=== PATIENT | male | born 1960 | race African-American/Black ===

== ENCOUNTER 2017-03-10 12:47 | Emergency (ER) | payer BC ==
[~2017-03-10] VITALS: Ht 182.9 cm; Wt 93.0 kg
[2017-03-10 12:55] VITALS: BP 126/73
[2017-03-10] MEDS ORDERED: IV NORMAL SALINE 1000ML BAG 1,000 ML IV ONE (13:15)
[2017-03-10] MEDS ORDERED: NAPROXEN 500 MG TABLET PO STA (13:17)
[2017-03-10] MEDS ORDERED: HYDROcodone/APAP 5/325MG 1 TAB TABLET PO ONE (13:30)
[2017-03-10] MEDS ORDERED: CYCLOBENZAPRINE 10 MG TABLET. PO ONE (13:30)
[2017-03-10] MEDS ORDERED: CYCL10TA2 PO (13:34)
[2017-03-10] MEDS ORDERED: NAPR500T8 PO (13:34)
[2017-03-10] MEDS ORDERED: HYDR-971 PO (13:34)
--- NOTE | 2017-03-10 13:34 | PHYS DOC ---
Past Medical History Past Medical History: No Pertinent History Past Surgical History: Other Additional Past Surgical Histo: HIP SX Alcohol Use: None Drug Use: None Adult General Chief Complaint Chief Complaint: LOWER BACK PAIN OR INJURY HPI HPI Patient is a 56 year old male with no significant medical history who presents today with moderate left low back pain radiating to the left lower extremity that began yesterday. Patient denies any trauma. Denies any numbness or tingling to bilateral lower extremities. Denies any loss of bowel /bladder function. Patient states he had a similar event a couple years ago and his doctor gave him a pain shot and some pain pills which relieved his symptoms. [place]. Review of Systems Review of Systems Constitutional: Denies fever or chills [] Eyes: Denies change in visual acuity, redness, or eye pain [] GI: Denies abdominal pain, nausea, vomiting, bloody stools or diarrhea [] : Denies dysuria or hematuria [] Musculoskeletal: back pain Integument: Denies rash or skin lesions [] Neurologic: Denies headache, focal weakness or sensory changes [] Endocrine: Denies polyuria or polydipsia [] Current Medications Current Medications Current Medications Medications (Trade) Dose Ordered Sig/Jose L Start Time Stop Time Status Last Admin Dose Admin Acetaminophen/ Hydrocodone Bitart (Lortab 5/325) 2 tab 1X ONCE 03/10/17 13:30 03/10/17 13:31 Cyclobenzaprine HCl (Flexeril) 10 mg 1X ONCE 03/10/17 13:30 03/10/17 13:31 Naproxen (Naprosyn) 500 mg 1X STAT 03/10/17 13:17 03/10/17 13:21 DC Sodium Chloride 1,000 ml @ 1,000 mls/hr 1X ONCE 03/10/17 13:15 03/10/17 14:14 Allergies Allergies Allergies Coded Allergies Type Severity Reaction Last Updated Verified No Known Drug Allergies 03/10/17 No Physical Exam Physical Exam Constitutional: Well developed, well nourished, no acute distress, non-toxic appearance. [] HENT: Normocephalic, atraumatic, bilateral external ears normal, oropharynx moist, no oral exudates, nose normal. [] Abdomen: Bowel sounds normal, soft, no tenderness, no masses, no pulsatile masses. [] Skin: Warm, dry, no erythema, no rash. [] Back: Diffuse paraspinal muscle tenderness in the left lower lumbar region, no midline lumbar spine tenderness, no CVA tenderness. [] Extremities: No tenderness, no cyanosis, no clubbing, ROM intact, no edema. [] Neurologic: Alert and oriented X 3, normal motor function, normal sensory function, no focal deficits noted. [] Psychologic: Affect normal, judgement normal, mood normal. [] Current Patient Data Vital Signs Vital Signs Date Time Temp Pulse Resp B/P (MAP) Pulse Ox O2 Delivery O2 Flow Rate FiO2 03/10/17 12:55 98.6 91 18 97 Room Air 98.6 EKG EKG [] Radiology/Procedures Radiology/Procedures [] Course & Med Decision Making Course & Med Decision Making Pertinent Labs and Imaging studies reviewed. (See chart for details) Patient is in the ED with left low back pain radiating to the left lower extremity. No known injury. He was discharged with pain medicines. He is to follow-up with his own doctor when he gets back to his home. He was provided return precautions and discharged in stable condition. Dragon Disclaimer Dragon Disclaimer This electronic medical record was generated, in whole or in part, using a voice recognition dictation system. Departure Departure Impression: Primary Impression: Low back pain Additional Impression: Sciatica of left side Disposition: 01 HOME, SELF-CARE Condition: STABLE Referrals: NO PCP (PCP) Follow-up with your own doctor in 1-2 weeks Patient Instructions: Back Pain, Adult, Sciatica Additional Instructions: You were seen for left low back pain radiating to the left lower extremity. Take the medicines prescribed as ordered. Apply ice to the area. Follow-up with your doctor in one week. Scripts Naproxen (NAPROXEN) 500 Mg Tablet. 1 TAB PO BID, #60 TAB 2 Refills Prov: SHELLY DELGADO APRN 03/10/17 Cyclobenzaprine Hcl (CYCLOBENZAPRINE HCL) 10 Mg Tablet 1 TAB PO TID, #30 TAB Prov: SHELLY DELGADO APRN 03/10/17 Hydrocodone/Apap 5-325 (NORCO 5-325 TABLET) 1 Each Tablet 1-2 TAB PO Q4-6HRS, #20 TAB Prov: SHELYL DELGADO APRN 03/10/17 Problem Qualifiers Primary Impression: Low back pain Chronicity: acute Back pain laterality: left Sciatica presence: with sciatica Sciatica laterality: sciatica of left side Qualified Codes: M54.42 - Lumbago with sciatica, left side SHELLY DELGADO [employer] Mar 10, 2017 13:34
== END 2017-03-10 13:42 | disposition home or self-care (01) ==
LOC: ER 12:47
DX: M54.42 Lumbago with sciatica, left side (principal)
CPT/HCPCS: 99283